=== PATIENT | female | born 1975 | race Caucasian/White ===

== ENCOUNTER 2016-08-26 08:21 | Emergency (ER) | payer BC ==
[2016-08-26 09:40] VITALS: BP 111/75
--- NOTE | 2016-08-26 09:48 | UC ---
Throat Pain/Nasal Feroz HPI - HPI Summary HPI Summary: ST for 2d, malaise, body aches, chills. Son had positive Strep test 4d ago and he coughed directly into her mouth. Poor appetite today but is able to take in fluids. NO rash. Headache. - History of Current Complaint Chief Complaint: UCGeneralIllness Stated Complaint: SORE THROAT HEADACHE CHILLS Time Seen by Provider: 08/26/16 09:34 Hx Obtained From: Patient Hx Last Menstrual Period: 08/12/16 Onset/Duration: Gradual Onset, Lasting Days - 2 Severity: Mild Cough: None Associated Signs & Symptoms: Positive: Dysphagia, Fever - subj. Negative: FB Sensation, Drooling, Hoarseness, Sinus Discomfort, Nasal Discharge, Rash - Epiglottits Risk Factors Epiglottis Risk Factors: Negative - Allergies/Home Medications Allergies/Adverse Reactions: Allergies Allergy/AdvReac Type Severity Reaction Status Date / Time Meperidine [From Demerol HCl] AdvReac Nausea Verified 08/26/16 09:36 PMH/Surg Hx/FS Hx/Imm Hx Endocrine History Of: Denies: Diabetes Cardiovascular History Of: Reports: Hypertension Denies: Pacemaker/ICD Respiratory History Of: Reports: Asthma Neurological History Of: Reports: Migraine - 1 MIGRAINE PER WEEK Psychological History Of: Reports: Anxiety - Surgical History Surgical History: Yes Surgery Procedure, Year, and Place: Right SI Joint Fusion, 2011 [facility]. Lipoma removed from lower back 2005. 2008 [place]. gallbladder 2008 [place] [place] - Family History Known Family History: Positive: Hypertension - Social History Occupation: Employed Full-time - teacher at college Lives: With Family Alcohol Use: None Substance Use Type: None Smoking Status (MU): Former Smoker Type: Cigarettes Amount Used/How Often: (previously 1/3 PPD for 12 years) Length of Time of Smoking/Using Tobacco: 20 Years Have You Smoked in the Last Year: Yes When Did the Patient Quit Smoking/Using Tobacco: last cig 1 month ago - Immunization History Most Recent Influenza Vaccination: Fall 2015 Review of Systems Constitutional: Fever, Chills, Fatigue Skin: Negative Eyes: Negative ENT: Sore Throat Respiratory: Negative Cardiovascular: Negative Gastrointestinal: Negative Genitourinary: Negative Motor: Negative Neurovascular: Negative Musculoskeletal: Myalgia Neurological: Headache Psychological: Negative All Other Systems Reviewed And Are Negative: Yes Physical Exam Triage Information Reviewed: Yes Appearance: Well-Appearing, No Pain Distress, Well-Nourished Vital Signs: Initial Vital Signs Temp 98.3 F 08/26/16 09:33 Pulse 66 08/26/16 09:33 Resp 16 08/26/16 09:33 BP 111/75 08/26/16 09:33 Pulse Ox 99 08/26/16 09:33 Vital Signs Reviewed: Yes Eye Exam: Normal Eyes: Positive: Conjunctiva Clear ENT: Positive: Hearing grossly normal, Pharyngeal erythema, TMs normal. Negative: Nasal congestion, Tonsillar swelling, Tonsillar exudate, Trismus, Muffled/hoarse voice Neck exam: Normal Respiratory Exam: Normal Cardiovascular Exam: Normal Musculoskeletal Exam: Normal Neurological Exam: Normal Psychological Exam: Normal Skin Exam: Normal Throat Pain/Nasal Course/Dx - Differential Dx/Diagnosis Differential Diagnosis/HQI/PQRI: Pharyngitis, URI Provider Diagnoses: pharyngitis Discharge - Discharge Plan Condition: Stable Disposition: HOME Prescriptions: Amoxicillin (*) 875 mg PO BID #20 tab Patient Education Materials: Strep Throat (ED) Referrals: Stephanie Lamar PA [Primary Care Provider] -
== END 2016-08-26 10:00 | disposition home or self-care (01) ==
LOC: UCCORT 08:21
DX: J02.9 Acute pharyngitis, unspecified (principal); R50.9 Fever, unspecified; Z88.5 Allergy status to narcotic agent; Z90.49 Acquired absence of other specified parts of digestive tract; Z87.891 Personal history of nicotine dependence
CPT/HCPCS: 99212; G0463